=== PATIENT | female | born 1985 | race Caucasian/White ===

== ENCOUNTER 2016-10-10 11:08 | Emergency (ER) | payer MEDICAID, OTHER ==
[~2016-10-10] VITALS: Wt 100.0 kg
[~2016-10-10 11:08] MED LIST: VIC; [UNRECOGNIZED DRUG - REMARK]
--- NOTE | 2016-10-10 11:59 | ERD ---
ER Documentation Chief Complaint Date/Time DATE: 10/10/16 TIME: 11:50 Chief Complaint SORE THROAT SINCE LAST NIGHT, SOME HEADACHE NO FEVERS. HPI 31 y/o female presents to ED for sore throat for 3 days, stated that she felt like she has a fever yesterday but did not take her temperature. Denies headache, loss of consciousness, dizziness, blurry vision, changes in vision, photophobia, facial pain, ear pain, difficulty swallowing, neck pain, shoulder pain, chest pain, cough, hemoptysis, abdominal pain, back pain, loss of appetite, nausea, vomiting, hematochezia, diarrhea, constipation, urinary symptoms, , the possibility of being , bladder and bowel incontinences, extremity weakness, extremity tenderness, numbness or tingling sensation, difficulty walking, recent travel, recent exposure to illness, recent antibiotic use in the last 3 months, fever, chills. Allergy: NKA PMH: Fatty live. Family medical history: Denies. AO LMP:10/06/2016 Medications: Surgery: 1 Primary Social History: Not working at this time. Smokes medical marijuana. Occasionally drinks alcoholic beverages. Denies use of illegal drugs. ROS All systems reviewed and are negative except as per history of present illness. Medications Home Meds Reported Medications [Bcp Unk Name] No Conflict Check 10/02/09 Acetaminophen/Hydrocodone (Vicodin) 1 Tab Tab 10/02/09 Allergies Allergies: Coded Allergies: No Known Drug Allergy (Verified Allergy, Mild, 10/02/09) PMhx/Soc History of Surgery: No Hx Neurological Disorder: No Hx Respiratory Disorders: No Hx Cardiac Disorders: No Hx Psychiatric Problems: No Hx Miscellaneous Medical Probl: Yes (SCIATICA, LEFT LEG) Hx Alcohol Use: Yes (WHISKEY EVERY DAY) Hx Substance Use: No Hx Tobacco Use: Yes (CIGS) Physical Exam Vitals Vital Signs Date Time Temp Pulse Resp B/P Pulse Ox O2 Delivery O2 Flow Rate FiO2 10/10/16 11:16 98.8 100 20 129/88 98 Physical Exam CONSTITUTIONAL: Well-appearing; well-nourished; in no apparent distress. HEAD: Normocephalic; atraumatic. EYES: Conjunctiva clear, sclera non-icteric, EOM intact. PERRL Ears: Hearing intact. EACs clear, TMs non-bulging, non-inflamed, translucent & mobile, ossicles normal appearance, No obstructions, no erythema, no discharges Nose: No obstructions. No polyps. No external lesions. Mucosa non-inflamed. No external lesions, septum and turbinates normal. No rhinorrhea. No discharges. Frontal sinus is non-tender to palpation. Maxillary sinus is non-tender to palpation. MOUTH: Moist mucous membranes, no lesion, no obstructions, no vesicles, no thrush, patent airway Throat: Uvula in midline. Right tonsil is +2 with erythema, exudate. Left tonsil is +2 with erythema, no exudate. Tolerating secretions well. Good gag reflex. Patent airway. Neck: Supple, without lesions, bruits, or adenopathy. No mass. Thyroid non- enlarged and non-tender to palpation. CHEST: Symmetrical chest. Respirations even and not labored. No retractions noted. CARDIOVASCULAR: Normal S1, S2. RRR. No murmurs, gallops. RESPIRATORY: Normal chest excursion with respiration; breath sounds clear and equal bilaterally; no wheezes, rhonchi, or rales. Breathing even and unlabored. Speaking in clear, full, and complete sentences w/ ease. ABDOMEN: Normal bowel sounds normal. Soft, round, non-distended, non-guarding, no tenderness, no rebound, no organomegaly, no masses, no pulsating abdominal mass. No hernia. No peritoneal signs. : No CVA tenderness. BACK: Symmetrical shoulder. Spine is midline without deformity, tenderness. No evidence of trauma or deformity. PELVIS: Stable pelvis. No evidence of trauma or deformity. MUSCULOSKELETAL: Normal gait and station. No misalignment, asymmetry, crepitation, defects, tenderness, masses, effusions, decreased range of motion, instability, atrophy or abnormal strength or tone in the head, neck, spine, ribs , pelvis or extremities. No calf tenderness. NEUROVASCULAR: Distal pulses are present. Pedal pulse are present, equal, and normal. Capillary refills are < 2 seconds. NEUROLOGIC: Alert and oriented x4. Speaks full and clear sentences. Cranial Nerves II-XII normal. Sensation to pain, touch, and proprioception normal. Grossly unremarkable. No neurologic deficits. Romberg test is negative. PSYCHOLOGICAL: The patients mood and manner are appropriate. No hallucinations , delusions. Not SI. Not HI. Has the capacity to decide for self SKIN: Normal for age and ethnicity; warm; dry; good turgor; no apparent lesions or exudates. No rashes, hives, discoloration. Intact. Procedures/MDM Examination. Disease process, medical treatment was explained to the patient and family member. They verbalized understanding and agreed with the diagnostic tests, medical treatment, and follow-up care. Consultation: None. Differential diagnosis: Peritonsillar abscess versus strep throat Medical decision makin31 y/o female presents to ED for sore throat for 3 days , stated that she felt like she has a fever yesterday but did not take her temperature. Patient's complaint, patient's history, my physical findings are consistent with my final diagnosis of strep throat. Medications prescribed are the following: Augmentin. Motrin. Patient and family member are made aware of the side effects and adverse reactions of the medications prescribed. Instructed on when to seek emergent and medical attention in case allergic/anaphylactic reactions or severe side effects and or adverse reactions to medications. Patient and family member verbalized understanding. Patient instructed Instructed to follow-up with his PCP in 24-48 hours. Instructed to Call 911 for chest pain, shortness of breath. Advised to come back here in ED as soon as possible for severity of symptoms which includes but not limited to: any new symptoms; shortness of breath/difficulty of breathing; cardiovascular changes; severe gastrointestinal symptoms; signs and symptoms of bleeding and or infection; signs of compartment syndrome/neurovascular changes; neurological changes/deficits. Patient and family member verbalized understanding. Upon discharge, patient is alert and oriented x 4, speaks full and clear sentences, denies pain, has no neurological deficits, has no neurovascular deficits, difficulty of breathing. Breathing even and unlabored. Lung sounds are clear to auscultation. Not in distress. Appears comfortable. Ambulatory with steady gait. Appears satisfied with care provided here in ED. Departure Diagnosis: Primary Impression: Sore throat Additional Impression: Strep throat Condition: Good Additional Instructions: Follow-up with PCP in the next 24-48 hrs. NORAH NIEVES Oct 10, 2016 11:59
[2016-10-10] MEDS ORDERED: AMOX1TAB10 PO (12:00)
[2016-10-10] MEDS ORDERED: IBUP400T22 PO (12:00)
== END 2016-10-10 12:12 | disposition home or self-care (01) ==
LOC: FTE 11:08
DX: J02.0 Streptococcal pharyngitis (principal); F17.210 Nicotine dependence, cigarettes, uncomplicated
CPT/HCPCS: 99283

== ENCOUNTER 2018-04-16 15:07 | Emergency (ER) | END 2018-04-16 23:03 | disposition home or self-care (01) ==